=== PATIENT | male | born 1960 | race Asian ===

== ENCOUNTER 2019-03-08 10:24 | Emergency (ER) | payer OTHER ==
[~2019-03-08] VITALS: Ht 160 cm; Wt 51.7 kg
[2019-03-08] MEDS ORDERED: MELO7.5T46 (11:46)
--- NOTE | 2019-03-08 11:52 | NUR ---
LACERATION CLEANED WITH NS ET BETASEPT.
--- NOTE | 2019-03-08 12:07 | ED Upper Extremity ---
General Chief Complaint: Laceration Stated Complaint: WC LT INDEX FINGER CRUSH INJ Nursing Triage Note: STATES HE WAS AT WORK LIFTING A BOX WHEN THE BOX FELL DOWN CRUSHING HIS LEFT INDEX FINGER. Nursing Sepsis Screen: No Definite Risk History of Present Illness Date Seen by Provider: Mar 08, 2019 Time Seen by Provider: 12:04 Initial Comments Patient was lifting a heavy box at work when it fell down onto his left hand and now he hurts in his left index finger and left thumb. It appears he has a laceration to the distal tip of his left index finger. He says his last tetanus was 2 years ago with work. He says he also hurts on his distal thumb. He denies any weakness numbness or tingling. Allergies and Home Medications Allergies Coded Allergies: No Known Drug Allergies (Unverified , 03/08/19) Patient Home Medication List Home Medication List Reviewed: Yes Review of Systems Constitutional: no symptoms reported Musculoskeletal: joint pain Skin: other Psychiatric/Neurological: Numbness, Weakness Past Djqynzv-[id number]-Kvofpv Hx Patient Social History Alcohol Use: Occasionally Uses Recreational Drug Use: No Smoking Status: Never a Smoker Recent Foreign Travel: No Contact w/Someone Who Travel: No Recent Infectious Disease Expo: No Recent Hopitalizations: No Immunizations Up To Date Tetanus Booster (TDap): Less than 5yrs Seasonal Allergies Seasonal Allergies: No Past Medical History Surgeries: No Respiratory: No Cardiac: No Neurological: No Genitourinary: No Gastrointestinal: No Musculoskeletal: No Endocrine: No HEENT: No Cancer: No Psychosocial: No Integumentary: No Physical Exam Vital Signs Vital Signs - First Documented 03/08/19 11:25 Temp 96.2 Pulse 75 Resp 16 B/P (MAP) 160/90 (113) Pulse Ox 96 O2 Delivery Room Air Capillary Refill : Less Than 3 Seconds Height, Weight, BMI Height: 5'3.00" Weight: 114lbs. oz. 51.695083ga; BMI Method:Stated General Appearance: WD/WN, no apparent distress Hand: laceration (approximate 1.5 cm laceration at left index fingertip because to the fingernail and makes an L shape but does not appear to extend beneath his fingernail. When examined [place] and there is no obvious foreign body.), nail injury (appx 50% subungal hematoma noted.) Neurologic/Tendon: normal sensation, normal motor functions, normal tendon functions, responds to pain, no evidence tendon injury Procedures/Interventions Wound Location: Upper Extremities Wound's Depth, Shape: superficial (well approximated) Wound Explored: contaminated Irrigated w/ Saline (ccs): 1000 Betadine Prep?: Yes Wound Debrided: moderate Other Closure Supply: Wound Adhesive tissue glue applied with good results. Progress/Results/Core Measures Results/Orders My Orders Orders - AIDEN ANGELES DO Hand 3 View Left (03/08/19 11:48) Vital Signs/I&O 03/08/19 11:25 Temp 96.2 Pulse 75 Resp 16 B/P (MAP) 160/90 (113) Pulse Ox 96 O2 Delivery Room Air Blood Pressure Mean: 113 Progress Progress Note : Progress Note Patient with open fracture of distal phalanx of index finger. Patient had wound closed with tissue glue and was placed in a splint and is neurovascularly intact status post splint placement. Be placed on Keflex and told to follow with his doctor in 2 days and to return sooner with worsening pain redness swelling or other general concerns. Patient aware and agreeable with the plan for discharge and verbalized understanding of the above instructions. Departure Impression Primary Impression: Open fracture of phalanx of digit of hand Additional Impression: Finger laceration Disposition: 01 HOME, SELF-CARE Condition: Stable Departure-Patient Inst. Decision time for Depature: 12:24 Referrals: NO,LOCAL PHYSICIAN (PCP/Family) Primary Care Physician Patient Instructions: Laceration Repair With Glue (DC) Scripts Cephalexin (Keflex) 500 Mg Capsule 500 MG PO TID for 5 Days, #15 CAP Prov: AIDEN ANGELES DO 03/08/19 AIDEN ANGELES DO Mar 08, 2019 12:06
[2019-03-08] MEDS ORDERED: CEPH-507 PO (12:25)
[2019-03-08 12:29] VITALS: BP 136/67
--- NOTE | 2019-03-08 12:30 | Diagnostic Imaging Report ---
INDICATION: Injury to the left hand. TECHNIQUE: 3 views of the left hand. COMPARISON: None FINDINGS: There is a moderately displaced fracture at the tip of the left index finger distal phalangeal tuft. Mild degenerative changes are seen at the radiocarpal joint and the first metacarpal phalangeal joint. No additional fractures are seen. There is soft tissue edema and laceration at the tip of the left index finger. No radiopaque foreign bodies are seen. IMPRESSION: Displaced fracture at the left index finger distal phalangeal tuft. Dictated by: Dictated on workstation # [id number]
== END 2019-03-08 12:39 | disposition home or self-care (01) ==
LOC: EDBD 10:28 → ER FS 10:28
DX: S62.631B Displaced fracture of distal phalanx of left index finger, initial encounter for open fracture (principal); W20.8XXA Other cause of strike by thrown, projected or falling object, initial encounter; Y92.59 Other trade areas as the place of occurrence of the external cause; Y99.0 Civilian activity done for income or pay
CPT/HCPCS: 12001; 73130

== ENCOUNTER → 2021-10-01 | Outpatient (CLI) | payer BC ==
[~2021-10-01] MED LIST: CEPH-507 PO; MELO7.5T46
--- NOTE | 2021-10-01 13:34 | Diagnostic Imaging Report ---
INDICATION: Post Covid 19 infection, cough, shortness of breath. TECHNIQUE: Two view chest 1:24 PM CORRELATION STUDY: None FINDINGS: The heart size, mediastinal configuration and pulmonary vasculature are within normal limits. The lungs are clear with no consolidating infiltrate. There is no significant pleural effusion or pneumothorax. A few scattered probable calcified granulomas are present. Benign-appearing sclerotic foci of the right proximal humerus. Soft tissue calcification, left aspect of the neck could be reflective of carotid artery calcification. IMPRESSION: 1. Negative for acute abnormality of the chest. Dictated by: Dictated on workstation # [id number]
== END ==
LOC: RAD 12:58
PROVIDERS: ATTEND Physician Assistant
DX: R05.9 Cough, unspecified (principal); R06.02 Shortness of breath; U09.9 Post COVID-19 condition, unspecified
CPT/HCPCS: 71046